=== PATIENT | male | born 1975 | race Caucasian/White ===

== ENCOUNTER 2017-06-30 19:21 | Emergency (ER) | payer SELFPAY ==
[~2017-06-30] VITALS: Ht 180.3 cm; Wt 145.0 kg
[2017-06-30 19:23] VITALS: BP 126/83; PULSE 87; RESP 16; TEMP 98.8; O2SAT 96
== END 2017-06-30 21:06 | disposition left against medical advice (07) ==
LOC: NED 19:21
DX: Z53.21 Procedure and treatment not carried out due to patient leaving prior to being seen by health care provider (principal)
CPT/HCPCS: 99281